=== PATIENT | female | born 1960 | race Caucasian/White ===

== ENCOUNTER 2021-06-24 09:58 | Emergency (ER) | payer OTHER, MEDICARE, SELFPAY ==
[2021-06-24 10:11] VITALS: BP 139/65; PULSE 109; RESP 16; TEMP 37.4; O2SAT 91
[2021-06-24 10:15] VITALS: BP 139/65; PULSE 109; RESP 16; TEMP 37.4; O2SAT 91
--- NOTE | 2021-06-24 10:39 | ED.SKABFB ---
HPI - Skin/Abscess/Foreign Bdy General Chief complaint: Eye Problems Stated complaint: rash/redness right eye Time Seen by Provider: 06/24/21 10:30 Source: patient and RN notes reviewed Mode of arrival: ambulatory Limitations: no limitations History of Present Illness HPI narrative: Patient presents today complaint of a red and swollen rash to her face and around her neck and chest x2 days. States it itches profusely, but denies pain. She has been using Benadryl and yoga-ibx-jrgtyul ointment without relief. MD complaint: rash Related Data Home Medications Medication Instructions Recorded Confirmed doxepin 06/24/21 escitalopram oxalate mg 06/24/21 fluticasone propion-salmeterol INHALATION 06/24/21 06/24/21 [Advair Diskus] lisinopril 06/24/21 oxygen-air delivery systems [PV 06/24/21 06/24/21 Classic Oxygen Concentrator] pantoprazole PO 06/24/21 potassium chloride meq PO 06/24/21 prednisone 06/24/21 ropinirole mg 06/24/21 umeclidinium [Incruse Ellipta] INHALATION 06/24/21 Allergies Allergy/AdvReac Type Severity Reaction Status Date / Time No Known Allergies Allergy Verified 06/24/21 10:20 Review of Systems Review of Systems: CONSTITUTIONAL: Denies body aches, fever, chills, or sweats. EYES: Denies visual changes, redness, or discharge. ENT: Denies rhinorrhea, congestion, sore throat, or otalgia. CARDIOVASCULAR: Denies chest pain, palpitations, or edema. RESPIRATORY: Denies cough or dyspnea. GASTROINTESTINAL: Denies abdominal pain, nausea, vomiting, or diarrhea. GENITOURINARY: Denies dysuria or hematuria. SKIN: Denies wounds.+ Pruritic rash MUSCULOSKELETAL: Denies back pain, joint pain, or myalgia. NEUROLOGIC: Denies headache, numbness, tingling, or weakness. PSYCH: Denies depression or anxiety. [facility]LY [facility] Past Medical History Medical History (Updated 06/24/21 @ 10:46 by Mable Arnold, TECHNICAL FELLOW, ) COPD (chronic obstructive pulmonary disease) Depression Comments At time of signature, I have reviewed and agree with nursing past medical, surgical, social and family history unless otherwise noted. Please see nursing chart for further information. There is no relevant family history pertinent to the presenting complaint Exam Narrative: GENERAL: Chronically ill appearing, well-nourished, and in no acute distress. Wearing a nasal cannula and home oxygen HEAD: Normocephalic, atraumatic. EYES: EOMI. No redness or drainage. Conjunctivae normal. ENT: Mucous membranes pink and moist. NECK: Normal AROM. Supple. No lymphadenopathy. CHEST: No respiratory distress. Clear to auscultation. HEART: Regular rate and rhythm. No murmur appreciated. Normal peripheral pulses. ABDOMEN: Soft, nontender, nondistended, normal active bowel sounds. MUSCULOSKELETAL: No bony tenderness. EXTREMITIES: Normal range of motion. No edema. SKIN: Warm, dry. Capillary refill normal. Normal skin turgor. Erythematous, swollen, macular rash with honey crusting to the right forehead, spreading down to the right eyelids, right cheek and mu-ism, right ear into the right neck. Erythematous rash without honey crusting around the chest and circumferentially around the neck. NEURO: No focal deficits. Alert and oriented x3. Gait steady. PSYCH: Normal affect. No signs of depression or anxiety. Course Vital Signs Vital signs: Vital Signs Temperature 99.4 F 06/24/21 10:11 Pulse Rate 109 H 06/24/21 10:11 Respiratory Rate 16 06/24/21 10:11 Blood Pressure 139/65 06/24/21 10:11 Pulse Oximetry 91 06/24/21 10:11 Temperature 99.4 F 06/24/21 10:15 Pulse Rate 109 H 06/24/21 10:15 Respiratory Rate 16 06/24/21 10:15 Blood Pressure 139/65 06/24/21 10:15 Pulse Oximetry 91 06/24/21 10:15 Reviewed. Pt has been instructed to follow up with her PCP regarding her elevated blood pressure today. MDM - Skin/Abscess/Foreign Bdy Differential Diagnosis Differential diagnosis: Likely abscess of skin or subcutaneo
[2021-06-24 11:10] VITALS: PULSE 100; RESP 22; O2SAT 92
--- NOTE | 2021-06-24 11:10 | PC.NURSE ---
1050 AFTER GIVING DISCHARGE INSTRUCTIONS PT STOOD TO AMBULATE AND BECAME DIZZY. SAT PT DOWN IN WHEELCHAIR. SHE INCREASED HER O2 PER CONCENTRATOR FROM 3L TO 5.5L WITH LITTLE RELIEF. BP 110/64 RR 24 O2 SAT 84%. O2 SWITCHED TO CONTINUOUS O2 SAT RISING. USED PT'S SANCHEZ TO OPEN HER TANK ALL THE WAY OPEN(IT WAS NOT FULLY OPEN). O2 DECREASED TO 4L PER CONCENTRATOR AT 1105. 1110. PT DENIED DIZZINESS. HR 100 RR 22 02 SAT 92%. PT DISCHARGED. ASSISTED TO POV PER WC WITH O2 PER CONCENTRATOR AT 4L. NO RESPIRATORY DISTRESS NOTED. PT STATES SHE HAS ANOTHER FULL O2 TANK IN THE CAR. HER FRIEND IS DRIVING.
== END 2021-06-24 11:10 | disposition home or self-care (01) ==
PROVIDERS: Emergency Provider Nurse Practitioner
DX: L01.00 Impetigo, unspecified (principal); J44.9 Chronic obstructive pulmonary disease, unspecified
CPT/HCPCS: 99213; G0463